=== PATIENT | male | born 1965 | race Caucasian/White ===

== ENCOUNTER 2022-09-25 19:34 | Emergency (ER) | payer BC, OTHER ==
[~2022-09-25] VITALS: Ht 170.2 cm; Wt 90.7 kg
[~2022-09-25 19:34] MED LIST: [UNRECOGNIZED DRUG - REMARK]
[2022-09-25 20:29] VITALS: TEMP 98.1
--- NOTE | 2022-09-25 20:45 | NUR ---
[facility] C/O LAC TO [facility]P & L [facility] S/P GLF WHILE GARDENING -LOC, -BLOOD THINNERS. PL -10/12
--- NOTE | 2022-09-25 21:17 | NUR ---
PATIENT RETURNED FROM CT VIA WHEEL CHAIR
--- NOTE | 2022-09-25 22:35 | NUR ---
DR LAW HERNANDEZ AT PT'S BEDSIDE FOR [place]RIST[place]NA TO SCALP.
--- NOTE | 2022-09-25 22:48 | NUR ---
Patient discharged to home in stable condition. Written and verbal after care instructions given. Patient verbalizes understanding of instruction.
[2022-09-25 22:49] VITALS: BP 114/75; O2SAT 100
== END 2022-09-25 22:49 | disposition home or self-care (01) ==
LOC: ER 19:38
DX: S01.01XA Laceration without foreign body of scalp, initial encounter (principal); I10 Essential (primary) hypertension; W01.0XXA Fall on same level from slipping, tripping and stumbling without subsequent striking against object, initial encounter; Y93.89 Activity, other specified; Y92.89 Other specified places as the place of occurrence of the external cause; Y99.8 Other external cause status
CPT/HCPCS: 12002; 70450; 72125; 99284; A6403